=== PATIENT | female | born 1970 | race Caucasian/White ===

== ENCOUNTER 2017-11-10 08:04 | Emergency (ER) | payer BC ==
[2017-11-10 08:17] VITALS: BP 122/84
--- NOTE | 2017-11-10 08:44 | UC ---
Minor Trauma HPI - HPI Summary HPI Summary: 47 yo female with REM sleep disorder fell out of bed this AM about 4:30 hit face first (chin) hyperextended neck c/o thoraic back pain>neck pain >[place]LL (mild) hx chiari malformation with occipital decompression no arm pain/paresthesias no bowel/bladder dysfunction - History of Current Complaint Chief Complaint: UCHeadInjury Stated Complaint: HEADACHE NECK/CHIN INJURY Hx Obtained From: Patient Onset/Duration: Sudden Onset Severity Initially: Moderate Severity Currently: Moderate Pain Intensity: 5 - pain was worse before she took aleve Pain Scale Used: 0-10 Numeric Mechanism Of Injury: Fall From Height Of: - bed Aggravating Factor(s): Movement Alleviating Factor(s): OTC Meds - Risk Factors Penetrating Injury Risk Factors: Negative - Allergies/Home Medications Allergies/Adverse Reactions: Allergies Allergy/AdvReac Type Severity Reaction Status Date / Time clonazepam [From Klonopin] Allergy See Comment Verified 11/10/17 08:22 Home Medications: Home Medications Hydrocodone/Acetaminophen [Hydrocodone Bitartrate/AC] 1 tab PO Q6HR 11/10/17 [ History Confirmed 11/10/17] PMH/Surg Hx/FS Hx/Imm Hx Previously Healthy: Yes - Surgical History Surgical History: Yes Surgery Procedure, Year, and Place: CHIARI MALFORMATION POSTERIOR DECOMPRESSION. TONSILLECTOMY. CHOLECYSTECTOMY. APPENDECTOMY. HYSTERECTOMY. - Family History Known Family History: Positive: Cardiac Disease, Hypertension, Diabetes - Social History Alcohol Use: Occasionally Substance Use Type: None Smoking Status (MU): Never Smoked Tobacco Review of Systems Constitutional: Negative Skin: Negative Eyes: Negative ENT: Negative Respiratory: Negative Cardiovascular: Negative Gastrointestinal: Negative Genitourinary: Negative Motor: Negative Neurovascular: Negative Musculoskeletal: Arthralgia, Myalgia Neurological: Headache Psychological: Negative Is Patient Immunocompromised?: No All Other Systems Reviewed And Are Negative: Yes Physical Exam Triage Information Reviewed: Yes Appearance: Well-Appearing, No Pain Distress, Well-Nourished Vital Signs: Initial Vital Signs Temp 97.9 F 11/10/17 08:13 Pulse 68 11/10/17 08:13 Resp 18 11/10/17 08:13 BP 122/84 11/10/17 08:13 Pulse Ox 99 11/10/17 08:13 Vital Signs Reviewed: Yes Eyes: Positive: Conjunctiva Clear, Other: - eomi/perrl, fundi-sharp discs ENT: Positive: Hearing grossly normal. Negative: Nasal congestion, Nasal drainage, Trismus, Muffled voice, Hoarse voice, Uvula midline Dental Exam: Normal - no TMJ tenderness Neck: Positive: Other: - ariana collar removed/some midline tenderness c2-7 Respiratory: Positive: Lungs clear, Normal breath sounds, No respiratory distress Cardiovascular: Positive: RRR, No Murmur Musculoskeletal: Positive: Strength Intact, ROM Intact, No Edema Neurological: Positive: Alert, Other: - GCS15/15, cn2-12 intact, DTRs brisk and symmetrical, normal gait Psychological Exam: Normal Skin Exam: Normal Diagnostics - Radiology No standard instances Xray Interpretation: No Acute Changes - C-S and T-S Radiology Interpretation Completed By: Radiologist Minor Trauma Course/Dx - Differential Dx/Diagnosis Provider Diagnoses: cervical and thoraic strain Discharge - Sign-Out/Discharge Documenting (check all that apply): Discharge - Discharge Plan Condition: Stable Disposition: HOME Prescriptions: Cyclobenzaprine TAB* [Flexeril TAB*] 5 - 10 mg PO TID PRN #10 tab PRN Reason: Spasms Patient Education Materials: Cervical Strain (ED), Thoracic Back Strain (ED) Forms: *Work Release Referrals: Josie Hidalgo MD [Primary Care Provider] - 5 Days Additional Instructions: PT consult recheck for worsening headache aleve 1-2 twice daily with food for pain - Billing Disposition and Condition Condition: STABLE Disposition: HOME
--- NOTE | 2017-11-10 08:59 | RAD ---
Indication: Neck injury. Single lateral view of the cervical spine demonstrates vertebral bodies to be normal in height. Spinal canal appears to be intact. IMPRESSION: Single lateral view of the cervical spine is unremarkable.
--- NOTE | 2017-11-10 09:28 | RAD ---
Indication: Neck pain post fall out of bed. Comparison: Lateral view performed with a cervical collar 0852 hours. Technique: AP, open-mouth odontoid, lateral, and oblique views cervical spine. Report: Normal alignment from the craniocervical junction through the cervicothoracic junction. Negative for fracture. Preserved disc spaces. Oblique views are negative for osseous foraminal stenosis. Unremarkable prevertebral soft tissue contours. IMPRESSION: No radiographic evidence for traumatic cervical spine injury. Negative exam.
--- NOTE | 2017-11-10 09:39 | RAD ---
Indication: Pain post fall out of bed. Comparison: October 18, 2014 Technique: AP and lateral views thoracic spine. Report: Slight RIGHT convex curve of the thoracic spine is unchanged from the prior exam. Normal thoracic kyphosis. Negative for fracture. Minimal multilevel vertebral endplate osteophytosis and disc space narrowing. Unremarkable paraspinal soft tissue contours. Negative for pneumothorax within the [id number]. IMPRESSION: No traumatic injury of the thoracic spine evident.
== END 2017-11-10 09:56 | disposition home or self-care (01) ==
LOC: UCEAST 08:04
DX: S16.1XXA Strain of muscle, fascia and tendon at neck level, initial encounter (principal); S29.012A Strain of muscle and tendon of back wall of thorax, initial encounter; W06.XXXA Fall from bed, initial encounter; Y93.84 Activity, sleeping; Y92.003 Bedroom of unspecified non-institutional (private) residence as the place of occurrence of the external cause; G47.52 REM sleep behavior disorder; Q07.00 Arnold-Chiari syndrome without spina bifida or hydrocephalus; Z88.8 Allergy status to other drugs, medicaments and biological substances
CPT/HCPCS: 72020; 72050; 72070; 99212; G0463

== ENCOUNTER 2021-07-15 07:45 | Inpatient (IN) ==
[~2021-07-15 07:45] MED LIST: Buffered Lidocaine 1% SYRIN 1 ml INTRADERM ONE; Lactated Ringers 1000 ml BAG 1,000 ML IV SCH
[2021-07-15] MEDS ORDERED: ceFAZolin 1 GM ADVAN 1 GM ADDV.VIAL IVPB ONE (07:57)
[2021-07-15] MEDS ORDERED: ceFAZolin 2 GM PREMIX 2 GM/50 ML BAG ONE (07:57)
[2021-07-15] MEDS ORDERED: Heparin 5000 UNITS/ML 1 mL VIAL ONE (07:57)
[2021-07-15] MEDS ORDERED: fentaNYL 100 mcg/2 ml 50 MCG/ML VIAL ONE (08:53)
[2021-07-15] MEDS ORDERED: Midazolam 2 mg/2 ml VIAL 1 mg/ml 2 ml VIAL (2 mg) ONE (08:53)
[2021-07-15] MEDS ORDERED: Rocuronium 50 mg VIAL 10 mg/ml 5 ml VIAL (50 mg) ONE ×2 (08:54→11:58)
[2021-07-15] MEDS ORDERED: Methylene Blue 0.5 % 50 MG/10 ML AMP IV ONE (09:53)
[2021-07-15] MEDS ORDERED: Bupivacaine 0.5% SDV PF 30ML VIAL ONE (09:53)
[2021-07-15] MEDS ORDERED: Lidocaine 1% w EPI 1:100,000 MDV 20 ML VIAL ONE (09:53)
[2021-07-15] MEDS ORDERED: Morphine 4 MG/ML VIAL (1 ml) IV PRN (11:31)
[2021-07-15] MEDS ORDERED: fentaNYL 100 mcg/2 ml 50 MCG/ML VIAL IV PRN (11:31)
[2021-07-15] MEDS ORDERED: Ondansetron 4 mg VIAL 2 MG/ML 2 ml VIAL IV PRN ×2 (11:31→13:08)
[2021-07-15] MEDS ORDERED: oxyCODONE/Acetamin 5/325 mg TAB PO PRN (11:31)
[2021-07-15] MEDS ORDERED: Naloxone 0.4 mg VIAL 0.4 mg/ml 1 ml VIAL IV PRN (11:31)
[2021-07-15] MEDS ORDERED: HYDROcodone/ACET. 7.5/325 LIQ 15 ML UDC PO PRN (13:08)
[2021-07-15] MEDS ORDERED: diPHENhydraMINE IV 50 MG/ML 1 ml VIAL (BENADRYL) SLOW PUSH PRN (13:08)
[2021-07-15] MEDS ORDERED: HYDROmorphone 1 MG/1 ML SYRINGE IV SLOW PU PRN (13:08)
[2021-07-15] MEDS ORDERED: Ondansetron 4 mg VIAL 2 MG/ML 2 ml VIAL ONE (13:14)
[2021-07-15] MEDS ORDERED: DiMENhydriNATE IV 50 mg/ml 1 ml VIAL ONE (13:40)
[2021-07-15] MEDS ORDERED: Metoclopramide 5 MG/ML VIAL (10 mg) ONE (14:01)
[2021-07-15] MEDS: Lactated Ringers 1000 ml BAG 1,000 ML IV SCH ×2 (15:48→23:37)
[2021-07-15] MEDS: Heparin 5000 UNITS/ML 1 mL VIAL SUBCUT SCH (17:58)
[2021-07-15] MEDS: HYDROmorphone 0.5 MG/0.5 ML SYRINGE IV SLOW PU PRN ×2 (18:04→21:23)
[2021-07-15] MEDS: Famotidine IV 10 MG/ML 2 ml VIAL (20 mg) IV SLOW PU SCH (21:23)
[2021-07-16 04:48] LABS: ABS Lymphocytes 1.8 10^3/ul (1.0-4.8); ABS Monocytes 0.8 10^3/ul (0-0.8); ABS Neutrophils 7.2 10^3/ul (1.5-7.7); Eosinophil % 0.1 %; Hematocrit 36 % (35-47); Lymphocyte % 18.3 %; Mean Corpuscular HGB Conc 34 g/dL (31-36); Mean Corpuscular Hemoglobin 30 pg (27-31); Mean Corpuscular Volume 89 fL (80-97); Mean Platelet Volume 11.4 fL (7.4-10.4); Platelet Count 207 10^3/uL (150-450); Red Blood Count 3.99 10^6 /uL (3.70-4.87); Red Cell Distribution Width 13 % (10-15); White Blood Count 9.8 10^3/uL (3.5-10.8)
[2021-07-16 04:50] LABS: Albumin 3.4 g/dL (3.2-5.2); Calcium 8.8 mg/dL (8.6-10.3); Potassium 3.9 mmol/L (3.5-5.0); Total Bilirubin 0.4 mg/dL (0.2-1.0)
[2021-07-16 04:55] LABS: Albumin/Globulin Ratio 1.5 (1-3); Globulin 2.3 g/dL (2-4); Total Protein 5.7 g/dL (6.4-8.9); eGFR CKD-EPI 104.2 (>60)
[2021-07-16] MEDS ORDERED: Iohexol 350 (CONTRAST) 500 ML MDV IV ONE (05:00)
[2021-07-16] MEDS: Heparin 5000 UNITS/ML 1 mL VIAL SUBCUT SCH ×2 (06:09→14:35)
[2021-07-16] MEDS: Lactated Ringers 1000 ml BAG 1,000 ML IV SCH (07:52)
[2021-07-16 08:02] LABS: Troponin I 0.03 ng/mL (<0.03)
[2021-07-16] MEDS ORDERED: Flu vaccine *QUAD* 2021-22* 0.5 ML SYRINGE IM ONE (09:00)
[2021-07-16] MEDS: Famotidine IV 10 MG/ML 2 ml VIAL (20 mg) IV SLOW PU SCH (09:59)
[2021-07-16] MEDS ORDERED: D5W 1/2 NS KCl 20 meq 1000 ml 1,000 ML IV SCH (14:00)
[2021-07-16 19:21] VITALS: BP 98/64
== END 2021-07-16 21:05 | disposition home or self-care (01) | DRG 403 ==
LOC: AA 07:45 → SSU 15:31
PROVIDERS: ADMIT Surgery; ATTEND Surgery